=== PATIENT | female | born 1955 | race Caucasian/White ===

== ENCOUNTER → 2023-05-18 17:33 | Outpatient (CLI) | payer MEDICARE, OTHER, MEDICAID, SELFPAY ==
--- NOTE | 2023-05-18 17:40 | DI.RAD.S_ITS ---
PROCEDURE: XR WRIST RT MIN 3V INDICATIONS: Right wrist strain TECHNIQUE: 4 views of the wrist were acquired. COMPARISON: None. FINDINGS: Bones: No fractures or dislocations. No suspicious bony lesions. Well-circumscribed lucency at the base of the 1st metacarpal measuring 3 mm. Moderate 1st CMC and STT joint space narrowing and juxta-articular osteophytosis. Soft tissues: No suspicious soft tissue calcifications. IMPRESSION: 1. No acute bony abnormality. If clinical symptoms persist, consider repeat radiograph in 10-14 days versus cross-sectional imaging. 2. 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 3. Well-circumscribed lucency at the base of the 1st metacarpal measuring 3 mm appears benign and likely represents an intraosseous cyst. Dictated by: Michi Wolfe M.D. on 05/19/2023 at 12:11 Approved by: Michi Wolfe M.D. on 05/19/2023 at 12:14
== END ==
PROVIDERS: Family Provider Nurse Practitioner Family; Referring Provider Nurse Practitioner Family; Visit Provider Nurse Practitioner Family
DX: S66.911A Strain of unspecified muscle, fascia and tendon at wrist and hand level, right hand, initial encounter (principal); M18.11 Unilateral primary osteoarthritis of first carpometacarpal joint, right hand; M19.031 Primary osteoarthritis, right wrist; X58.XXXA Exposure to other specified factors, initial encounter
CPT/HCPCS: 73110